=== PATIENT | male | born 1965 | race Caucasian/White ===

== ENCOUNTER 2017-03-21 09:40 | Emergency (ER) | payer MEDICARE, OTHER ==
[2017-03-21 09:46] VITALS: RESP 18
--- NOTE | 2017-03-21 10:18 | ED ---
General Adult HPI - General Chief complaint: Skin/Abscess/Foreign Body Stated complaint: FB IN THROAT Time Seen by Provider: 03/21/17 09:57 Source: patient, RN notes reviewed Mode of arrival: ambulatory Limitations: no limitations - History of Present Illness Initial comments: Patient is a 51-year-old male who presents emergency room today with chief complaint of possible esophageal foreign body. Patient does admit that to 3 days ago was eating [employer] states one didn't feel like he went down right. He does admit that he's had some scratchy type feeling to base of his throat since. He states it seems better when he lays down but is worse when he sits up or swallows. Patient denies any other complaints or symptoms. Patient heart rate elevated at triage admits that he does have a history of tachycardia. Patient denies any other complaints or symptoms. Patient denies any recent fever, chills, shortness of breath, back pain, abdominal pain, nausea or vomiting, numbness or tingling, dysuria or hematuria, constipation or diarrhea, headaches or visual changes, or any other complaints. - Related Data Home Medications Medication Instructions Recorded Confirmed Mirtazapine [Remeron] 30 mg PO HS 03/02/16 03/21/17 Folic Acid [Folic Acid] 1 mg PO DAILY 03/21/17 03/21/17 Hydrochlorothiazide [Hydrodiuril] 25 mg PO DAILY 03/21/17 03/21/17 Lisinopril [Prinivil] 10 mg PO DAILY 03/21/17 03/21/17 QUEtiapine FUMARATE [SEROquel XR] 150 mg PO HS 03/21/17 03/21/17 Ranitidine HCl 150 mg PO BID 03/21/17 03/21/17 Vivitrol 380mg Inj 380 mg IM Q28D 03/21/17 03/21/17 amLODIPine [Norvasc] 10 mg PO DAILY 03/21/17 03/21/17 Allergies Allergy/AdvReac Type Severity Reaction Status Date / Time No Known Allergies Allergy Verified 03/21/17 10:13 Review of Systems ROS Statement: Those systems with pertinent positive or pertinent negative responses have been documented in the HPI. ROS Other: All systems not noted in ROS Statement are negative. Past Medical History Past Medical History: Hypertension History of Any Multi-Drug Resistant Organisms: None Reported Past Surgical History: No Surgical Hx Reported Past Psychological History: Depression Smoking Status: Current every day smoker Past Alcohol Use History: Abuse, Daily, Heavy Past Drug Use History: None Reported General Exam - General Exam Comments Initial Comments: General: The patient is awake and alert, in no distress, and does not appear acutely ill. Eye: Pupils are equal, round and reactive to light, extra-ocular movements are intact. No nystagmus. There is normal conjunctiva bilaterally. No signs of icterus. Ears, nose, mouth and throat: There are moist mucous membranes and no oral lesions. Neck: The neck is supple, there is no tenderness or JVD. Cardiovascular: There is a regular rate and rhythm. No murmur, rub or gallop is appreciated. Respiratory: Lungs are clear to auscultation, respirations are non-labored, breath sounds are equal. No wheezes, stridor, rales, or rhonchi. Gastrointestinal: Soft, non-distended, non-tender abdomen without masses or organomegaly noted. There is no rebound or guarding present. No CVA tenderness. Bowel sounds are unremarkable. Musculoskeletal: Normal ROM, no tenderness. Strength 5/5. Sensation intact. Pulses equal bilaterally 2+. Neurological: A&O x 3. CN II-XII intact, There are no obvious motor or sensory deficits. Coordination appears grossly intact. Speech is normal. Skin: Skin is warm and dry and no rashes or lesions are noted. Psychiatric: Cooperative, appropriate mood & affect, normal judgment. Limitations: no limitations Course Vital Signs 03/21/17 09:42 Temperature 97.1 F L Pulse Rate 139 H Respiratory 18 Rate Blood Pressure 118/77 O2 Sat by Pulse 97 Oximetry EKG Findings - EKG Comments: EKG Findings:: EKG performed at 1014: Shows sinus tachycardia at 119 bpm. TX interval is 154. QRS 86. QT/QTc is 316/444. No acute ST changes. Medical Decision Making - Medical Decision Making Case discussed in detail with attending physician Dr. Chacko. Patient's labs been reviewed. Cardiac enzymes negative. Negative d-dimer. Patient does admit that the symptoms started after eating a patient's 3 days ago. At this time patient will be discharged and advised to follow-up with GI for further evaluation. Advised return to emergency room if any symptoms increase or worsen or for any other concerns. - Lab Data Result diagrams: 03/21/17 10:56 03/21/17 10:56 Lab Results 03/21/17 03/21/17 03/21/17 Range/Units 10:56 10:56 10:56 WBC 10.1 (3.8-10.6) k/uL RBC 6.05 H (4.30-5.90) m/uL Hgb 17.9 H (13.0-17.5) gm/dL Hct 50.4 (39.0-53.0) % MCV 83.3 (80.0-100.0) fL MCH 29.5 (25.0-35.0) pg MCHC 35.5 (31.0-37.0) g/dL RDW 13.5 (11.5-15.5) % Plt Count 238 (150-450) k/uL Neutrophils % 76 % Lymphocytes % 17 % Monocytes % 4 % Eosinophils % 1 % Basophils % 1 % Neutrophils # 7.7 (1.3-7.7) k/uL Lymphocytes # 1.7 (1.0-4.8) k/uL Monocytes # 0.4 (0-1.0) k/uL Eosinophils # 0.1 (0-0.7) k/uL Basophils # 0.1 (0-0.2) k/uL PT (9.0-12.0) sec INR (<1.1) APTT (22.0-30.0) sec D-Dimer (<0.60) mg/L FEU Sodium 134 L (137-145) mmol/L Potassium 4.5 (3.5-5.1) mmol/L Chloride 103 (98-107) mmol/L Carbon Dioxide 20 L (22-30) mmol/L Anion Gap 11 mmol/L BUN 15 (9-20) mg/dL Creatinine 1.25 (0.66-1.25) mg/dL Est GFR (MDRD) Af Amer >60 (>60 ml/min/1.73 sqM) Est GFR (MDRD) Non-Af >60 (>60 ml/min/1.73 sqM) Glucose 126 H (74-99) mg/dL Calcium 9.9 (8.4-10.2) mg/dL Total Bilirubin 0.8 (0.2-1.3) mg/dL AST 28 (17-59) U/L ALT 31 (21-72) U/L Alkaline Phosphatase 82 (38-126) U/L Total Creatine Kinase 65 (55-170) U/L CK-MB (CK-2) 0.4 (0.0-2.4) ng/mL CK-MB (CK-2) Rel Index 0.6 Troponin I <0.012 (0.000-0.034) ng/mL Total Protein 7.2 (6.3-8.2) g/dL Albumin 4.8 (3.5-5.0) g/dL 03/21/17 Range/Units 10:56 WBC (3.8-10.6) k/uL RBC (4.30-5.90) m/uL Hgb (13.0-17.5) gm/dL Hct (39.0-53.0) % MCV (80.0-100.0) fL MCH (25.0-35.0) pg MCHC (31.0-37.0) g/dL RDW (11.5-15.5) % Plt Count (150-450) k/uL Neutrophils % % Lymphocytes % % Monocytes % % Eosinophils % % Basophils % % Neutrophils # (1.3-7.7) k/uL Lymphocytes # (1.0-4.8) k/uL Monocytes # (0-1.0) k/uL Eosinophils # (0-0.7) k/uL Basophils # (0-0.2) k/uL PT 11.7 (9.0-12.0) sec INR 1.2 (<1.1) APTT 24.0 (22.0-30.0) sec D-Dimer 0.27 (<0.60) mg/L FEU Sodium (137-145) mmol/L Potassium (3.5-5.1) mmol/L Chloride (98-107) mmol/L Carbon Dioxide (22-30) mmol/L Anion Gap mmol/L BUN (9-20) mg/dL Creatinine (0.66-1.25) mg/dL Est GFR (MDRD) Af Amer (>60 ml/min/1.73 sqM) Est GFR (MDRD) Non-Af (>60 ml/min/1.73 sqM) Glucose (74-99) mg/dL Calcium (8.4-10.2) mg/dL Total Bilirubin (0.2-1.3) mg/dL AST (17-59) U/L ALT (21-72) U/L Alkaline Phosphatase (38-126) U/L Total Creatine Kinase (55-170) U/L CK-MB (CK-2) (0.0-2.4) ng/mL CK-MB (CK-2) Rel Index Troponin I (0.000-0.034) ng/mL Total Protein (6.3-8.2) g/dL Albumin (3.5-5.0) g/dL Disposition Clinical Impression: Esophageal foreign body Disposition: HOME SELF-CARE Condition: Good Instructions: Esophageal Foreign Body (ED) Additional Instructions: Please follow-up with GI doctor over the next 1-2 days. Please return to emergency room if the symptoms increase or worsen or for any other concerns. Referrals: None,Stated [REFERRING] - 1-2 days Janet Lugo MD [STAFF PHYSICIAN] - 1-2 days Time of Disposition: 12:04
--- NOTE | 2017-03-21 10:33 | XR ---
EXAMINATION TYPE: XR chest 2V DATE OF EXAM: 03/21/2017 HISTORY: pain. REFERENCE: NONE. FINDINGS: Lungs are overinflated but clear. Pleural space are clear. The heart is not enlarged. IMPRESSION: COPD.
[2017-03-21] MEDS ORDERED: SODIUM CHLORIDE 0.9% 1,000 ML IV STA (10:39)
[2017-03-21 11:13] LABS: Basophils # (A) 0.1 k/uL (0-0.2); Basophils % (A) 1 %; CH 30.2; CHCM 36.5; Eosinophils # (A) 0.1 k/uL (0-0.7); Eosinophils % (A) 1 %; HCT 50.4 % (39.0-53.0); HDW 2.78; HGB 17.9 gm/dL (13.0-17.5); Luc # (Auto) 0.14; Luc % (Auto) 1; Lymphocytes # (A) 1.7 k/uL (1.0-4.8); Lymphocytes % (A) 17 %; MCH 29.5 pg (25.0-35.0); MCHC 35.5 g/dL (31.0-37.0); MCV 83.3 fL (80.0-100.0); Mean Platelet Volume 7.4; Monocytes # (A) 0.4 k/uL (0-1.0); Monocytes % (A) 4 %; Neutrophils # (A) 7.7 k/uL (1.3-7.7); Neutrophils % (A) 76 %; RBC 6.05 m/uL (4.30-5.90); RDW 13.5 % (11.5-15.5); WBC 10.1 k/uL (3.8-10.6); WBC (Perox) 9.67
[2017-03-21 11:21] LABS: Anion Gap 11 mmol/L; Calcium 9.9 mg/dL (8.4-10.2); Carbon Dioxide 20 mmol/L (22-30); Chloride 103 mmol/L (98-107); Glucose 126 mg/dL (74-99); Non-African American GFR(MDRD) >60 (>60 ml/min/1.73 sqM); Sodium 134 mmol/L (137-145); Total Bilirubin 0.8 mg/dL (0.2-1.3); Total Protein 7.2 g/dL (6.3-8.2)
[2017-03-21 11:25] LABS: AST 28 U/L (17-59); Blood Urea Nitrogen 15 mg/dL (9-20); Potassium 4.5 mmol/L (3.5-5.1)
[2017-03-21 11:26] LABS: ALT 31 U/L (21-72); Alkaline Phosphatase 82 U/L (38-126)
[2017-03-21 11:34] LABS: INR 1.2 (<1.1); Prothrombin Time 11.7 sec (9.0-12.0)
[2017-03-21 11:35] LABS: Creatine Kinase 65 U/L (55-170)
[2017-03-21 11:48] LABS: Creatine Kinase MB 0.4 ng/mL (0.0-2.4); Troponin I <0.012 ng/mL (0.000-0.034)
[2017-03-21 12:14] VITALS: BP 119/78; PULSE 94; TEMP 97.7
== END 2017-03-21 12:14 | disposition home or self-care (01) ==
LOC: EC 09:40
DX: T18.128A Food in esophagus causing other injury, initial encounter (principal); R00.0 Tachycardia, unspecified; I10 Essential (primary) hypertension; F32.9 Major depressive disorder, single episode, unspecified; F17.200 Nicotine dependence, unspecified, uncomplicated; Z79.899 Other long term (current) drug therapy
CPT/HCPCS: 36415; 71020; 80053; 82550; 82553; 84484; 85025; 85379; 85610; 85730; 93005; 96360; 99284

== ENCOUNTER → 2022-01-03 | Outpatient (CLI) | payer MEDICARE, OTHER ==
--- NOTE | 2022-01-03 12:24 | FL ---
EXAMINATION TYPE: FL barium swallow w video DATE OF EXAM: 01/03/2022 COMPARISON: NONE HISTORY: Abnormal sensation in throat. The patient was evaluated in the lateral projection during real-time fluoroscopy, during ingestion of barium mixed with solids and liquids. No aspiration or laryngeal penetration. See report from [facility]. No images obtained. 1 minute 3 seconds fluoroscopy time supplied.
== END | disposition home or self-care (01) ==
LOC: RADFLMAIN 10:56
PROVIDERS: ATTEND Internal Medicine
DX: R13.10 Dysphagia, unspecified (principal)
CPT/HCPCS: 74230

== ENCOUNTER → 2022-03-07 | Outpatient (CLI) | payer MEDICARE, OTHER ==
--- NOTE | 2022-03-07 12:26 | XR ---
EXAM TYPE: LUMBAR SPINE X RAY SERIES COMPARISON: NONE HISTORY: Pain TECHNIQUE: 4 views are submitted. FINDINGS: Alignment is anatomic. The pedicles are intact. The transverse processes are intact. Hypertrophic a nd degenerative changes of the spine. Vascular calcifications noted. Facet arthropathy lower lumbar s pine. IMPRESSION: 1. Multilevel degenerative disc disease.
== END | disposition home or self-care (01) ==
LOC: RADXRMAIN 11:39
PROVIDERS: ATTEND Internal Medicine
DX: M51.36 Other intervertebral disc degeneration, lumbar region (principal)
CPT/HCPCS: 72110

== ENCOUNTER 2023-01-12 01:23 | Inpatient (IN) | payer MEDICARE, MEDICAID ==
[2023-01-12] MEDS ORDERED: SODIUM CHLORIDE 0.9% 1,000 ML IV STA (01:57)
[2023-01-12] MEDS ORDERED: ONDANSETRON 4 MG/2 ML VIAL IVP STA (01:57)
[2023-01-12] MEDS ORDERED: PANTOPRAZOLE 40 MG/10 ML VIAL IVP STA (01:57)
[2023-01-12] MEDS ORDERED: KETOROLAC 15 MG/ML 1 ML VIAL IVP STA (01:57)
[2023-01-12 02:42] LABS: Basophils # (A) 0.1 k/uL (0-0.2); Basophils % (A) 2 %; Eosinophils # (A) 0.1 k/uL (0-0.7); Eosinophils % (A) 1 %; HCT 53.9 % (39.0-53.0); HGB 18.8 gm/dL (13.0-17.5); Lymphocytes # (A) 1.6 k/uL (1.0-4.8); Lymphocytes % (A) 21 %; MCH 31.4 pg (25.0-35.0); MCHC 34.9 g/dL (31.0-37.0); Mean Platelet Volume 8.4; Monocytes # (A) 0.4 k/uL (0-1.0); Monocytes % (A) 5 %; Neutrophils # (A) 5.3 k/uL (1.3-7.7); Neutrophils % (A) 69 %; Platelet Count 185 k/uL (150-450); RBC 5.99 m/uL (4.30-5.90); RDW 14.1 % (11.5-15.5); WBC 7.6 k/uL (3.8-10.6)
[2023-01-12 02:51] LABS: Appearance,Urine Clear (Clear); Bilirubin,Urine Negative (Negative); Blood,Urine Negative (Negative); Color,Urine Yellow; Glucose,Urine (UA) Negative (Negative); Ketones,Urine Trace (Negative); Leukocyte Esterase,Urine Negative (Negative); Nitrite,Urine Negative (Negative); PH, Urine 5.5 (5.0-8.0); Protein,Urine Negative (Negative); Specific Gravity,Urine 1.017 (1.001-1.035); Urobilinogen,Urine <2.0 mg/dL (<2.0)
[2023-01-12 02:54] LABS: ALT 25 U/L (4-49); AST 30 U/L (17-59); African American GFR (CKD) >90 (>60 ml/min/1.73 sqM); Albumin 4.3 g/dL (3.5-5.0); Alkaline Phosphatase 59 U/L (38-126); Amylase 58 U/L (30-110); Anion Gap 11 mmol/L; Blood Urea Nitrogen 5 mg/dL (9-20); Calcium 9.2 mg/dL (8.4-10.2); Carbon Dioxide 20 mmol/L (22-30); Chloride 104 mmol/L (98-107); Glucose 108 mg/dL (74-99); Lipase 57 U/L (23-300); Non-African American GFR(CKD) >90 (>60 ml/min/1.73 sqM); Sodium 135 mmol/L (137-145); Total Bilirubin 0.9 mg/dL (0.2-1.3); Total Protein 6.4 g/dL (6.3-8.2)
[2023-01-12 02:56] LABS: Potassium 4.1 mmol/L (3.5-5.1)
[2023-01-12 02:58] LABS: INR 1.2 (<1.2); Partial Thromboplastin Time 23.2 sec (22.0-30.0); Prothrombin Time 11.9 sec (9.0-12.0)
--- NOTE | 2023-01-12 03:29 | CT ---
EXAMINATION TYPE: CT abdomen pelvis w con DATE OF EXAM: 01/12/2023 COMPARISON: 02/01/2015 HISTORY: RLQ pain CT DLP: 804.9 mGycm Automated exposure control for dose reduction was used. CONTRAST: Performed with IV Contrast, patient injected with 100ml mL of Isovue 300. Images obtained from the diaphragm to the floor the pelvis with IV contrast. The lung bases are clear. No pleural effusion. Heart size is normal. No pericardial effusion. Liver s pleen and stomach pancreas gallbladder appear intact. The bile ducts are not dilated. There is no adrenal mass. Kidneys have normal size and contour. No hydronephrosis. Ureters are not di lated. No retroperitoneal adenopathy. The bladder distends smoothly. Appendix is posterior and appear s normal. No inguinal hernia. No free fluid in the pelvis. No pelvic mass. There is no mesenteric edema. No ascites or free air. No sign of a bowel obstruction. The lumbar vert ebrae have normal spacing and alignment. Posterior elements are intact. No compression fracture. The bony pelvis is intact. The hip joints are intact. There is 3 cm cyst in the medial right kidney. IMPRESSION: Normal appendix. No acute abnormality in the abdomen and pelvis.
[2023-01-12] MEDS ORDERED: MORPHINE SULFATE 2 MG/ML SYRINGE IVP ONE (04:15)
[2023-01-12] MEDS ORDERED: ACETAMINOPHEN TAB 325 MG TAB PO PRN (05:44)
[2023-01-12] MEDS ORDERED: MAGNESIUM HYDROXIDE 2,400 MG/10 ML CUP PO PRN (05:44)
[2023-01-12] MEDS ORDERED: MAG HYDROX/AL HYDROX/SIMETH 30 ML CUP PO PRN (05:44)
[2023-01-12] MEDS ORDERED: LORazepam 2 MG/ML INJ IM PRN (05:47)
[2023-01-12] MEDS ORDERED: HALOPERIDOL LACTATE 5 MG/ML 1 ML VIAL IM PRN (05:48)
[2023-01-12] MEDS ORDERED: haloperidoL 5 MG TAB PO PRN (05:48)
[2023-01-12 06:50] LABS: Amphetamine Screen,Urine Not Detected (NotDetected); Barbiturate Screen,Urine Not Detected (NotDetected); Benzodiazepines Screen,Urine Not Detected (NotDetected); Cocaine Screen,Urine Not Detected (NotDetected); Methadone Screen, Urine Not Detected (NotDetected); Opiate Screen,Urine Not Detected (NotDetected); Oxycodone Screen, Urine Not Detected (NotDetected); Phencyclidine Screen,Urine Not Detected (NotDetected); Tricyclic Antidepressant,Urine Not Detected (NotDetected); Urn Cannabinoid Scrn Detected (NotDetected)
--- NOTE | 2023-01-12 08:43 | ED ---
General Adult HPI - General Chief complaint: Abdominal Pain Stated complaint: Abd Pain Time Seen by Provider: 01/12/23 01:27 Source: patient, EMS, RN notes reviewed, old records reviewed Mode of arrival: EMS - History of Present Illness Initial comments: Patient is a 57-year-old male with past medical history remarkable for bipolar disease, history of alcohol abuse who presents emergency Department 11 days sober complaining of right lower quadrant abdominal pain. Describes is an achy sensation. Denies any nausea, vomiting, diarrhea. States he did have one loose bowel movement because he did produce that he was constipated. Denies any urinary complaints. Denies any testicular pain or penile discharge. Denies any fevers, chills, sick contacts. Has no other acute complaints at this time. Patient subsequently acknowledges he is no longer on any medications for his bipolar disease. At this time on initial evaluation, he denies any suicidal or homicidal ideations, attempts, plans. Denies any visual or auditory hallucinations. - Related Data Home Medications Medication Instructions Recorded Confirmed Mirtazapine [Remeron] 30 mg PO HS 03/02/16 03/21/17 Folic Acid 1 mg PO DAILY 03/21/17 03/21/17 QUEtiapine FUMARATE [SEROquel XR] 150 mg PO HS 03/21/17 03/21/17 Vivitrol 380mg Inj 380 mg IM Q28D 03/21/17 03/21/17 amLODIPine [Norvasc] 10 mg PO DAILY 03/21/17 03/21/17 hydroCHLOROthiazide [Hydrodiuril] 25 mg PO DAILY 03/21/17 03/21/17 lisinopriL [Prinivil] 10 mg PO DAILY 03/21/17 03/21/17 raNITIdine HCL [Ranitidine HCl] 150 mg PO BID 03/21/17 03/21/17 Allergies Allergy/AdvReac Type Severity Reaction Status Date / Time No Known Allergies Allergy Verified 01/12/23 05:49 Review of Systems ROS Statement: Those systems with pertinent positive or pertinent negative responses have been documented in the HPI. Review of Systems: CONST: Denies fever EYES: Denies blurry vision ENT: Denies nasal congestion C/V: Denies Chest pain RESP: Denies shortness of breath GI: endorsess abdominal pain : Denies dysuria SKIN: Denies rash. MSK: Denies joint pain. NEURO: Denies headache ROS Other: All systems not noted in ROS Statement are negative. Past Medical History Past Medical History: Hypertension History of Any Multi-Drug Resistant Organisms: None Reported Past Surgical History: No Surgical Hx Reported Smoking Status: Current every day smoker General Exam - General Exam Comments Initial Comments: General: Appears in no acute distress. No evidence of alcohol withdrawal. HEAD: Normal with no signs of head trauma. EYES: PERRLA, EOMI, conjunctiva normal, no discharge. ENT: Hearing grossly intact, normal oropharynx. RESPIRATORY: Clear breath sounds bilaterally. No wheezes, rales, or rhonchi. C/V: Regular rate and rhythm. S1 and S2 auscultated, no edema, peripheral pulses 2+ and intact throughout ABD: Abdomen soft, nondistended. Mild tenderness palpation in the right lower quadrant. No guarding. No rebound tenderness. No peritoneal signs. EXT: Normal range of motion, no obvious deformity SKIN: No rashes or lesions observed on exposed skin. NEURO: Alert and oriented x 4. Cranial nerves II-XII intact. No focal sensory or strength deficits. Course Vital Signs 01/12/23 01/12/23 01:31 05:24 Temperature 98 F Pulse Rate 123 H 75 Respiratory 17 Rate Blood Pressure 159/107 135/75 O2 Sat by Pulse 98 97 Oximetry Medical Decision Making - Medical Decision Making Was pt. sent in by a medical professional or institution (LUZ MARIA Balderrama, MAINTENANCE DISPATCHER, urgent care, hospital, or longterm...) When possible be specific @ -No Did you speak to anyone other than the patient for history (EMS, parent, family, police, friend...)? What history was obtained from this source @ -No Did you review nursing and triage notes (agree or disagree)? Why? @ -I reviewed and agree with nursing and triage notes Were old charts reviewed (outside hosp., previous admission, EMS record, old EKG, old radiological studies, urgent care reports/EKG's, longterm records)? Report findings @ -No old charts were reviewed Differential Diagnosis (chest pain, altered mental status, abdominal pain women, abdominal pain men, vaginal bleeding, weakness, fever, dyspnea, syncope, headache, dizziness, GI bleed, back pain, seizure, CVA, palpatations, mental health, musculoskeletal)? @ -Differential Abdominal Pain Men: Appendicitis, cholecystitis, diverticulosis, ischemic bowel, pancreatitis, hepatitis, UTI, gastroenteritis, AAA, incarcerated hernia, bowel obstruction, constipation, inflammatory bowel, hepatitis, peptic ulcer disease, splenic infarction, perforated viscus, testicular torsion, this is not meant to be an all-inclusive list EKG interpreted by me (3pts min.). @ -As above X-rays interpreted by me (1pt min.). @ -None done CT interpreted by me (1pt min.). @ -ETM pelvis reveals no obvious acute intra-abdominal processes states when the patient's symptoms. U/S interpreted by me (1pt. min.). @ -None done What testing was considered but not performed or refused? (CT, X-rays, U/S, l abs)? Why? @ -None What meds were considered but not given or refused? Why? @ -None Did you discuss the management of the patient with other professionals (professionals i.e. , PA, MAINTENANCE DISPATCHER, lab, RT, psych nurse, social services counselor, assistant professor of anthropology, teacher, aoc aadc operations staff officer, lining caser)? Give summary @ -EPS was notified of the patient. Was smoking cessation discussed for >3mins.? @ -No Was critical care preformed (if so, how long)? @ -No Were there social determinants of health that impacted care today? How? (Homelessness, low income, unemployed, alcoholism, drug addiction, transportation, low edu. Level, literacy, decrease access to med. care, nursing home, rehab)? @ -No Was there de-escalation of care discussed even if they declined (Discuss DNR or withdrawal of care, Hospice)? DNR status @ -No What co-morbidities impacted this encounter? (DM, HTN, Smoking, COPD, CAD, Cancer, CVA, ARF, Chemo, Hep., AIDS, mental health diagnosis, sleep apnea, morbid obesity)? @ -Bipolar disease Was patient admitted / discharged? Hospital course, mention meds given and route, prescriptions, significant lab abnormalities, going to OR and other pertinent info. @ -Based on the patient's presentation and physical exam, I'm concerned for an acute intra-abdominal process for his current symptoms are we will obtain abdominal labs as well as CT and pelvis. He'll be symptomatically treated with IV analgesia, fluids, Protonix, Zofran. He was in agreement with this plan. Vital signs are within acceptable limits. Patient's laboratory studies are within acceptable limits. CT and pelvis is within normal limits. On reevaluation, patient is feeling improved in terms of his abdominal pain. I updated him on his results. However at this time he does endorse worsening depression, becomes emotional and begins to start crying. States he intermittently does have suicidal ideations and thoughts at home. States he currently has not recently acted on any of these. I did recommend that we admit the EPS evaluate him. He was in agreement this plan. He was placed in green scrubs. BAT is 0. UDS is pending. EPS evaluate the patient after I notified them that the patient is medically cleared for evaluation. They determined that he does meet inpatient criteria. He will be admitted to inpatient psychiatry for further management. Undiagnosed new problem with uncertain prognosis? @ -No Drug Therapy requiring intensive monitoring for toxicity (Heparin, Nitro, Insulin, Cardizem)? @ -No Were any procedures done? @ -No Diagnosis/symptom? @ -Abdominal pain of unknown etiology Acute, or Chronic, or Acute on Chronic? @ -Acute Uncomplicated (without systemic symptoms) or Complicated (systemic symptoms)? @ -Uncomplicated Side effects of treatment? @ -No Exacerbation, Progression, or Severe Exacerbation? @ -No Poses a threat to life or bodily function? How? (Chest pain, USA, IA, pneumonia, PE, COPD, DKA, ARF, appy, cholecystitis, CVA, Diverticulitis, Homicidal, Suicidal, threat to staff... and all critical care pts) @ -No Diagnosis/symptom? @ -depresion, SI Acute, or Chronic, or Acute on Chronic? @ -acute Uncomplicated (without systemic symptoms) or Complicated (systemic symptoms)? @ -Uncomplicated Side effects of treatment? @ -none Exacerbation, Progression, or Severe Exacerbation] @ -no Poses a threat to life or bodily function? @ -Yes, can result in harm to self due to his suicidal ideations and depression. - Lab Data Result diagrams: 01/12/23 02:08 01/12/23 02:08 Lab Results 01/12/23 01/12/23 01/12/23 Range/Units 02:08 02:08 02:08 WBC 7.6 (3.8-10.6) k/uL RBC 5.99 H (4.30-5.90) m/uL Hgb 18.8 H (13.0-17.5) gm/dL Hct 53.9 H (39.0-53.0) % MCV 90.0 (80.0-100.0) fL MCH 31.4 (25.0-35.0) pg MCHC 34.9 (31.0-37.0) g/dL RDW 14.1 (11.5-15.5) % Plt Count 185 (150-450) k/uL MPV 8.4 Neutrophils % 69 % Lymphocytes % 21 % Monocytes % 5 % Eosinophils % 1 % Basophils % 2 % Neutrophils # 5.3 (1.3-7.7) k/uL Lymphocytes # 1.6 (1.0-4.8) k/uL Monocytes # 0.4 (0-1.0) k/uL Eosinophils # 0.1 (0-0.7) k/uL Basophils # 0.1 (0-0.2) k/uL PT 11.9 (9.0-12.0) sec INR 1.2 H (<1.2) APTT 23.2 (22.0-30.0) sec Sodium 135 L (137-145) mmol/L Potassium 4.1 (3.5-5.1) mmol/L Chloride 104 (98-107) mmol/L Carbon Dioxide 20 L (22-30) mmol/L Anion Gap 11 mmol/L BUN 5 L (9-20) mg/dL Creatinine 0.60 L (0.66-1.25) mg/dL Est GFR (CKD-EPI)AfAm >90 (>60 ml/min/1.73 sqM) Est GFR (CKD-EPI)NonAf >90 (>60 ml/min/1.73 sqM) Glucose 108 H (74-99) mg/dL Plasma Lactic Acid Abdirizak (0.7-2.0) mmol/L Calcium 9.2 (8.4-10.2) mg/dL Total Bilirubin 0.9 (0.2-1.3) mg/dL AST 30 (17-59) U/L ALT 25 (4-49) U/L Alkaline Phosphatase 59 (38-126) U/L Total Protein 6.4 (6.3-8.2) g/dL Albumin 4.3 (3.5-5.0) g/dL Amylase 58 (30-110) U/L Lipase 57 (23-300) U/L Urine Color Urine Appearance (Clear) Urine pH (5.0-8.0) Ur Specific [place] (1.001-1.035) Urine Protein (Negative) Urine Glucose (UA) (Negative) Urine Ketones (Negative) Urine Blood (Negative) Urine Nitrite (Negative) Urine Bilirubin (Negative) Urine Urobilinogen (<2.0) mg/dL Ur Leukocyte Esterase (Negative) Urine Opiates Screen (NotDetected) Ur Oxycodone Screen (NotDetected) Urine Methadone Screen (NotDetected) Ur Propoxyphene Screen (NotDetected) Ur Barbiturates Screen (NotDetected) U Tricyclic Antidepress (NotDetected) Ur Phencyclidine Scrn (NotDetected) Ur Amphetamines Screen (NotDetected) U Methamphetamines Scrn (NotDetected) U Benzodiazepines Scrn (NotDetected) Urine Cocaine Screen (NotDetected) U Marijuana (THC) Screen (NotDetected) Influenza Type A (PCR) (Not Detectd) Influenza Type B (PCR) (Not Detectd) RSV (PCR) (Not Detectd) SARS-CoV-2 (PCR) (Not Detectd) 01/12/23 01/12/23 01/12/23 Range/Units 02:08 02:09 02:20 WBC (3.8-10.6) k/uL RBC (4.30-5.90) m/uL Hgb (13.0-17.5) gm/dL Hct (39.0-53.0) % MCV (80.0-100.0) fL MCH (25.0-35.0) pg MCHC (31.0-37.0) g/dL RDW (11.5-15.5) % Plt Count (150-450) k/uL MPV Neutrophils % % Lymphocytes % % Monocytes % % Eosinophils % % Basophils % % Neutrophils # (1.3-7.7) k/uL Lymphocytes # (1.0-4.8) k/uL Monocytes # (0-1.0) k/uL Eosinophils # (0-0.7) k/uL Basophils # (0-0.2) k/uL PT (9.0-12.0) sec INR (<1.2) APTT (22.0-30.0) sec Sodium (137-145) mmol/L Potassium (3.5-5.1) mmol/L Chloride (98-107) mmol/L Carbon Dioxide (22-30) mmol/L Anion Gap mmol/L BUN (9-20) mg/dL Creatinine (0.66-1.25) mg/dL Est GFR (CKD-EPI)AfAm (>60 ml/min/1.73 sqM) Est GFR (CKD-EPI)NonAf (>60 ml/min/1.73 sqM) Glucose (74-99) mg/dL Plasma Lactic Acid Abdirizak 0.8 (0.7-2.0) mmol/L Calcium (8.4-10.2) mg/dL Total Bilirubin (0.2-1.3) mg/dL AST (17-59) U/L ALT (4-49) U/L Alkaline Phosphatase (38-126) U/L Total Protein (6.3-8.2) g/dL Albumin (3.5-5.0) g/dL Amylase (30-110) U/L Lipase (23-300) U/L Urine Color Yellow Urine Appearance Clear (Clear) Urine pH 5.5 (5.0-8.0) Ur Specific [place] 1.017 (1.001-1.035) Urine Protein Negative (Negative) Urine Glucose (UA) Negative (Negative) Urine Ketones Trace H (Negative) Urine Blood Negative (Negative) Urine Nitrite Negative (Negative) Urine Bilirubin Negative (Negative) Urine Urobilinogen <2.0 (<2.0) mg/dL Ur Leukocyte Esterase Negative (Negative) Urine Opiates Screen Not Detected (NotDetected) Ur Oxycodone Screen Not Detected (NotDetected) Urine Methadone Screen Not Detected (NotDetected) Ur Propoxyphene Screen Not Detected (NotDetected) Ur Barbiturates Screen Not Detected (NotDetected) U Tricyclic Antidepress Not Detected (NotDetected) Ur Phencyclidine Scrn Not Detected (NotDetected) Ur Amphetamines Screen Not Detected (NotDetected) U Methamphetamines Scrn Not Detected (NotDetected) U Benzodiazepines Scrn Not Detected (NotDetected) Urine Cocaine Screen Not Detected (NotDetected) U Marijuana (THC) Screen Detected H (NotDetected) Influenza Type A (PCR) (Not Detectd) Influenza Type B (PCR) (Not Detectd) RSV (PCR) (Not Detectd) SARS-CoV-2 (PCR) (Not Detectd) 01/12/23 Range/Units 02:20 WBC (3.8-10.6) k/uL RBC (4.30-5.90) m/uL Hgb (13.0-17.5) gm/dL Hct (39.0-53.0) % MCV (80.0-100.0) fL MCH (25.0-35.0) pg MCHC (31.0-37.0) g/dL RDW (11.5-15.5) % Plt Count (150-450) k/uL MPV Neutrophils % % Lymphocytes % % Monocytes % % Eosinophils % % Basophils % % Neutrophils # (1.3-7.7) k/uL Lymphocytes # (1.0-4.8) k/uL Monocytes # (0-1.0) k/uL Eosinophils # (0-0.7) k/uL Basophils # (0-0.2) k/uL PT (9.0-12.0) sec INR (<1.2) APTT (22.0-30.0) sec Sodium (137-145) mmol/L Potassium (3.5-5.1) mmol/L Chloride (98-107) mmol/L Carbon Dioxide (22-30) mmol/L Anion Gap mmol/L BUN (9-20) mg/dL Creatinine (0.66-1.25) mg/dL Est GFR (CKD-EPI)AfAm (>60 ml/min/1.73 sqM) Est GFR (CKD-EPI)NonAf (>60 ml/min/1.73 sqM) Glucose (74-99) mg/dL Plasma Lactic Acid Abdirizak (0.7-2.0) mmol/L Calcium (8.4-10.2) mg/dL Total Bilirubin (0.2-1.3) mg/dL AST (17-59) U/L ALT (4-49) U/L Alkaline Phosphatase (38-126) U/L Total Protein (6.3-8.2) g/dL Albumin (3.5-5.0) g/dL Amylase (30-110) U/L Lipase (23-300) U/L Urine Color Urine Appearance (Clear) Urine pH (5.0-8.0) Ur Specific [place] (1.001-1.035) Urine Protein (Negative) Urine Glucose (UA) (Negative) Urine Ketones (Negative) Urine Blood (Negative) Urine Nitrite (Negative) Urine Bilirubin (Negative) Urine Urobilinogen (<2.0) mg/dL Ur Leukocyte Esterase (Negative) Urine Opiates Screen (NotDetected) Ur Oxycodone Screen (NotDetected) Urine Methadone Screen (NotDetected) Ur Propoxyphene Screen (NotDetected) Ur Barbiturates Screen (NotDetected) U Tricyclic Antidepress (NotDetected) Ur Phencyclidine Scrn (NotDetected) Ur Amphetamines Screen (NotDetected) U Methamphetamines Scrn (NotDetected) U Benzodiazepines Scrn (NotDetected) Urine Cocaine Screen (NotDetected) U Marijuana (THC) Screen (NotDetected) Influenza Type A (PCR) Not Detected (Not Detectd) Influenza Type B (PCR) Not Detected (Not Detectd) RSV (PCR) Not Detected (Not Detectd) SARS-CoV-2 (PCR) Not Detected (Not Detectd) - EKG Data -: EKG Interpreted by Me EKG Comments: 12-lead Electrocardiogram Interpretation Note EKG was reviewed and interpreted by myself. 12-lead ECG performed at 0255 is interpreted by me as revealing normal sinus rhythm at a rate of 92 beats per minute. [place] is normal. MS interval is 195 ms, QRS duration is 92 ms, QTc is 399 ms. There were no ST or T wave abnormalities to suggest myocardial ischemia or injury. R wave progression across the precordium was satisfactory. By my interpretation this EKG is non-diagnostic for acute ischemia. Disposition Clinical Impression: Depression, Suicidal ideation, Abdominal pain of unknown cause Disposition: ADMITTED IP TO THIS HOSP Condition: Stable Time of Disposition: 04:30
[2023-01-12] MEDS: NICOTINE 7MG/24HR PATCH TRANSDERM SCH (08:44)
--- NOTE | 2023-01-12 10:08 | P.HP ---
Psychiatric H&P - . H&P Date: 01/12/23 History & Physical: Allergies Allergy/AdvReac Type Severity Reaction Status Date / Time No Known Allergies Allergy Verified 01/12/23 05:49 Vital Signs Temp 97.9 F 01/12/23 06:13 Pulse 75 01/12/23 06:13 Resp 15 01/12/23 06:13 BP 149/77 01/12/23 06:13 Pulse Ox 96 01/12/23 06:13 FiO2 Intake & Output 01/11/23 01/12/23 01/12/23 18:59 06:59 18:59 Weight 74.871 kg Laboratory Last Values WBC 7.6 k/uL (3.8-10.6) 01/12/23 02:08 RBC 5.99 m/uL (4.30-5.90) H 01/12/23 02:08 Hgb 18.8 gm/dL (13.0-17.5) H 01/12/23 02:08 Hct 53.9 % (39.0-53.0) H 01/12/23 02:08 MCV 90.0 fL (80.0-100.0) 01/12/23 02:08 MCH 31.4 pg (25.0-35.0) 01/12/23 02:08 MCHC 34.9 g/dL (31.0-37.0) 01/12/23 02:08 RDW 14.1 % (11.5-15.5) 01/12/23 02:08 Plt Count 185 k/uL (150-450) 01/12/23 02:08 MPV 8.4 01/12/23 02:08 Neutrophils % 69 % 01/12/23 02:08 Lymphocytes % 21 % 01/12/23 02:08 Monocytes % 5 % 01/12/23 02:08 Eosinophils % 1 % 01/12/23 02:08 Basophils % 2 % 01/12/23 02:08 Neutrophils # 5.3 k/uL (1.3-7.7) 01/12/23 02:08 Lymphocytes # 1.6 k/uL (1.0-4.8) 01/12/23 02:08 Monocytes # 0.4 k/uL (0-1.0) 01/12/23 02:08 Eosinophils # 0.1 k/uL (0-0.7) 01/12/23 02:08 Basophils # 0.1 k/uL (0-0.2) 01/12/23 02:08 PT 11.9 sec (9.0-12.0) 01/12/23 02:08 INR 1.2 (<1.2) H 01/12/23 02:08 APTT 23.2 sec (22.0-30.0) 01/12/23 02:08 Sodium 135 mmol/L (137-145) L 01/12/23 02:08 Potassium 4.1 mmol/L (3.5-5.1) 01/12/23 02:08 Chloride 104 mmol/L (98-107) 01/12/23 02:08 Carbon Dioxide 20 mmol/L (22-30) L 01/12/23 02:08 Anion Gap 11 mmol/L 01/12/23 02:08 BUN 5 mg/dL (9-20) L 01/12/23 02:08 Creatinine 0.60 mg/dL (0.66-1.25) L 01/12/23 02:08 Est GFR (CKD-EPI)AfAm >90 (>60 ml/min/1.73 sqM) 01/12/23 02:08 Est GFR (CKD-EPI)NonAf >90 (>60 ml/min/1.73 sqM) 01/12/23 02:08 Glucose 108 mg/dL (74-99) H 01/12/23 02:08 Plasma Lactic Acid Abdirizak 0.8 mmol/L (0.7-2.0) 01/12/23 02:08 Calcium 9.2 mg/dL (8.4-10.2) 01/12/23 02:08 Total Bilirubin 0.9 mg/dL (0.2-1.3) 01/12/23 02:08 AST 30 U/L (17-59) 01/12/23 02:08 ALT 25 U/L (4-49) 01/12/23 02:08 Alkaline Phosphatase 59 U/L (38-126) 01/12/23 02:08 Total Protein 6.4 g/dL (6.3-8.2) 01/12/23 02:08 Albumin 4.3 g/dL (3.5-5.0) 01/12/23 02:08 Amylase 58 U/L (30-110) 01/12/23 02:08 Lipase 57 U/L (23-300) 01/12/23 02:08 Urine Color Yellow 01/12/23 02:20 Urine Appearance Clear (Clear) 01/12/23 02:20 Urine pH 5.5 (5.0-8.0) 01/12/23 02:20 Ur Specific [place] 1.017 (1.001-1.035) 01/12/23 02:20 Urine Protein Negative (Negative) 01/12/23 02:20 Urine Glucose (UA) Negative (Negative) 01/12/23 02:20 Urine Ketones Trace (Negative) H 01/12/23 02:20 Urine Blood Negative (Negative) 01/12/23 02:20 Urine Nitrite Negative (Negative) 01/12/23 02:20 Urine Bilirubin Negative (Negative) 01/12/23 02:20 Urine Urobilinogen <2.0 mg/dL (<2.0) 01/12/23 02:20 Ur Leukocyte Esterase Negative (Negative) 01/12/23 02:20 Urine Opiates Screen Not Detected (NotDetected) 01/12/23 02:09 Ur Oxycodone Screen Not Detected (NotDetected) 01/12/23 02:09 Urine Methadone Screen Not Detected (NotDetected) 01/12/23 02:09 Ur Propoxyphene Screen Not Detected (NotDetected) 01/12/23 02:09 Ur Barbiturates Screen Not Detected (NotDetected) 01/12/23 02:09 U Tricyclic Antidepress Not Detected (NotDetected) 01/12/23 02:09 Ur Phencyclidine Scrn Not Detected (NotDetected) 01/12/23 02:09 Ur Amphetamines Screen Not Detected (NotDetected) 01/12/23 02:09 U Methamphetamines Scrn Not Detected (NotDetected) 01/12/23 02:09 U Benzodiazepines Scrn Not Detected (NotDetected) 01/12/23 02:09 Urine Cocaine Screen Not Detected (NotDetected) 01/12/23 02:09 U Marijuana (THC) Screen Detected (NotDetected) H 01/12/23 02:09 Influenza Type A (PCR) Not Detected (Not Detectd) 01/12/23 02:20 Influenza Type B (PCR) Not Detected (Not Detectd) 01/12/23 02:20 RSV (PCR) Not Detected (Not Detectd) 01/12/23 02:20 SARS-CoV-2 (PCR) Not Detected (Not Detectd) 01/12/23 02:20 01/12/23 10:00 Psychiatric evaluation: This is a 57-year-old male with long history of mental illness and patient claims that he's been diagnosed with bipolar disorder and alcohol use disorder who presents with some abdominal pain. After medical clearance patient however reports that he was feeling extended depressed helpless and hopeless is also having suicidal ideations and a plan to overdose Patient says that he was very concerned about his safety He says that he is being on a binge for several months and has been detoxing himself for the last 11 days He says that his has extreme problems with insomnia and anxiety and restlessness and feeling agitated He patient says that he also experiencing marked mood swings He currently denies any suicidal plan but states that he needs help Past history personal and social history patient stated that he is currently lives alone and is on disability He says that he does not have any close family members in this area This patient states that he is on disability due to having dyslexia and learning disorders He states that he also had a relapse last year He also admits using cannabis on and off for years Patient says that he was doing better and had stopped taking his medications whe n he started drinking heavily Mental status examination: MENTAL STATUS EVALUATION: Appearance: Appears stated age, groomed, average body built, and no specific features. Patient was in hospital gown Gait/ posture: Ambulates appropriately and adequately, no abnormal movements, with relaxed posture. Attitude and Behavior: cooperative, makes good eye contact during course of interview. Motor Activity: Decreased psychomotor activity. Speech: spontaneous, Slow rate, rhythm, and articulation. Low volume. Mood: fine Affect: Flat. Thought content/process: denies suicidal thoughts, denies homicidal thoughts, Denies intentions, or plans. Thought processes are goal-directed sequential and logical Perception: Denies auditory hallucinations. Alertness: No impairment. Concentration: Adequate Orientation: Alert and fully oriented Insight/judgment: Good Diagnostic impression: Adjustment disorder with mixed emotional features Mood disorder unspecified Anxiety disorder alcohol-related Alcohol use disorder chronic Somatoform disorder unspecified Rule out bipolar disorder Plan: Patient is admitted under voluntary status to [facility]HU for stabilization of psychiatric symptoms and safety. Patient signed adult voluntary form. -Medications : Patient is already detox himself for the last 11 days and we will initially started on gabapentin 300 mg 3 times a day to help with the detox and anxiety We will also add trazodone 150 mg at bedtime for insomnia -Ativan and Haldol PRN for agitation/aggression -Patient was counselled on substance abuse -Patient was informed of the risks, benefits and side effects of the medication and patient verbally consented to taking the medications. -Internal Medicine consult to perform medical evaluation and physical. -SW on board for discharge planning. Encourage patient to participate in groups to work on coping skills. Tentative the patient has true bipolar disorder versus mood changes related to his chronic alcohol use but will monitor for any exacerbation of symptoms Patient is currently not suicidal or homicidal and does not appear to be a danger to himself or others and is motivated for treatment [facility]
[2023-01-12 11:45] LABS: ALT 26 U/L (4-49); AST 28 U/L (17-59); Albumin 4.4 g/dL (3.5-5.0); Alkaline Phosphatase 59 U/L (38-126); Bilirubin, Delta 0.4 mg/dL (0.0-0.2); Bilirubin,Unconjugated 0.3 mg/dL (0.0-1.1); Total Bilirubin 0.7 mg/dL (0.2-1.3); Total Protein 6.5 g/dL (6.3-8.2)
[2023-01-12] MEDS: LORazepam 1 MG TAB PO PRN (13:37)
[2023-01-12] MEDS: GABAPENTIN 300 MG CAP PO SCH ×2 (15:29→21:09)
[2023-01-12 19:03] LABS: Chol/HDL Ratio 2.63 Ratio; VLDL Calculation 15.36 mg/dL (5.00-40.00)
[2023-01-12] MEDS ORDERED: traZODone HCL 50 MG TAB PO SCH (21:00)
[2023-01-12] MEDS: DOXEPIN 25 MG CAP PO SCH (21:09)
--- NOTE | 2023-01-13 00:29 | P.PN ---
Progress Note - Text Progress Note Date: 01/13/23 Attempted to see the patient in the mental health unit on 01/12 at 1999. The patient refused to be seen or be evaluated.
[2023-01-13] MEDS: NICOTINE 7MG/24HR PATCH TRANSDERM SCH (06:43)
--- NOTE | 2023-01-13 08:16 | P.PN ---
Progress Note - Text Progress Note Date: 01/13/23 Subjective/objective data: Patient reports that he is feeling better He says that the medications to seem to keep him calmer Patient however states that he could not take the trazodone but did not seem to agree well with him and that he forgot to tell me about it when interviewing Patient states that the doxepin however did seem to work very well on that he slept all night Denies any side effects from the current medications He says that his depression seems to fluctuate He says that overall he is feeling that he is on the right track He denies any suicidal or homicidal ideations at this time Mental status examination: MENTAL STATUS EVALUATION: Appearance: Appears stated age, groomed, average body built, and no specific features. Patient was in hospital gown Gait/ posture: Ambulates appropriately and adequately, no abnormal movements, with relaxed posture. Attitude and Behavior: cooperative, makes good eye contact during course of interview. Motor Activity: Decreased psychomotor activity. Speech: spontaneous, Slow rate, rhythm, and articulation. Low volume. Mood: fine Affect: Flat. Thought content/process: denies suicidal thoughts, denies homicidal thoughts, Denies intentions, or plans. Thought processes are goal-directed sequential and logical Perception: Denies auditory hallucinations. Alertness: No impairment. Concentration: Adequate Orientation: Alert and fully oriented Insight/judgment: Good Diagnostic impression: Adjustment disorder with mixed emotional features Mood disorder unspecified Anxiety disorder alcohol-related Alcohol use disorder chronic Somatoform disorder unspecified Rule out bipolar disorder Plan: Patient is admitted under voluntary status to [facility]HU for stabilization of psychiatric symptoms and safety. Patient signed adult voluntary form. -Medications : Patient is already detox himself for the last 11 days started on gabapentin 300 mg 3 times a day to help with the detox and anxiety The trazodone has been switched to doxepin 25 mg at bedtime with good results -Ativan and Haldol PRN for agitation/aggression -Patient was counselled on substance abuse -Patient was informed of the risks, benefits and side effects of the medication and patient verbally consented to taking the medications. -Internal Medicine consult to perform medical evaluation and physical. -SW on board for discharge planning. Encourage patient to participate in groups to work on coping skills. Tentative the patient has true bipolar disorder versus mood changes related to his chronic alcohol use but will monitor for any exacerbation of symptoms Patient is currently not suicidal or homicidal and does not appear to be a danger to himself or others and [facility]
[2023-01-13] MEDS: GABAPENTIN 300 MG CAP PO SCH ×3 (08:56→20:43)
[2023-01-13] MEDS: LORazepam 1 MG TAB PO PRN (09:26)
[2023-01-13] MEDS: DOXEPIN 25 MG CAP PO SCH (20:43)
[2023-01-14] MEDS: NICOTINE 7MG/24HR PATCH TRANSDERM SCH (08:22)
[2023-01-14] MEDS: GABAPENTIN 300 MG CAP PO SCH (08:22)
[2023-01-14] MEDS: LORazepam 1 MG TAB PO PRN (08:22)
[2023-01-14] MEDS ORDERED: DOCUSATE 100 MG CAP PO STA (10:24)
[2023-01-14] MEDS ORDERED: NALTREXONE HCL 50 MG TAB PO STA (10:26)
--- NOTE | 2023-01-14 11:54 | P.PN ---
Progress Note - Text Progress Note Date: 01/14/23 Interval History: Patient was seen attending group and was directable and agreeable to speak with typewriter operator automatic in the office. And currently reports that he is feeling significantly better in regards to his anxiety and sleep. He states that he has been tolerating his medication of gabapentin and doxepin well. He does express concerns regarding constipation and states that it has been 4 days since he last passed old. He is agreeable to starting Colace today. He remains future and goal oriented and understands that he needs to maintain sobriety. He denies any issues regarding his sleep or his appetite. He reports no medical issues or concerns. The patient reports that he is trending in the right direction. He does express that he has concerns regarding his housing situation and has been having trouble getting his landlord to handle the situation with his neighbor and his neighbor's cats. Mental Status Exam: General Appearance: Patient appears to be stated age is alert, directable, and cooperative. Behavior: Patient is calmly seated without any agitated behavior. Speech: Patient's speech is fluent and nonpressured. Mood/Affect: Mood is improving mildly, affect is congruent and constricted. Suicidality/Homicidality: Patient denies having any suicidal or homicidal ideation intent or plan. Perceptions: Patient denies any visual hallucinations and denies any auditory hallucinations Though content/process: There is no evidence of any delusional thought content and thought process is linear and goal-directed. Memory and concentration: AOX3, grossly intact for the purposes of this session Judgment and insight: Improving mildly Vital Signs Temp 97.8 F 01/14/23 06:31 Pulse 79 01/14/23 06:31 Resp 16 01/14/23 06:31 BP 120/64 01/14/23 06:31 Pulse Ox 98 01/14/23 06:31 FiO2 Intake & Output 01/13/23 01/14/23 01/14/23 18:59 06:59 18:59 Weight 75.7 kg Assessment Unspecified mood disorder Adjustment disorder, with mixed anxiety and depression Alcohol use disorder Rule out bipolar disorder Plan: -Patient continues to meet criteria for inpatient psychiatric admission for symptom stabilization and safety. Patient has signed adult voluntary form and medication consent and was placed in patient's chart. -Medications: Increase gabapentin to 400 mg by mouth 3 times a day profitable use for anxiety and for alcohol use disorder Continue doxepin 25 mg by mouth at bedtime for anxiety and insomnia Startnaltrexone 50 mg by mouth daily for alcohol cessation -When necessary Ativan and Haldol for agitation/aggression. -NRT - nicotine patch -SW on board for discharge planning. Encouraged the patient to participate in milieu.
[2023-01-14] MEDS: GABAPENTIN 400 MG CAP PO SCH ×2 (15:14→20:34)
[2023-01-14] MEDS ORDERED: NICOTINE GUM (POLACRILEX) 2 MG GUM BUCCAL PRN (17:05)
[2023-01-14] MEDS: DOXEPIN 25 MG CAP PO SCH (20:34)
[2023-01-14] MEDS: DOCUSATE 100 MG CAP PO SCH (20:34)
--- NOTE | 2023-01-15 01:41 | P.CONS ---
History of Present Illness - Reason for Consult Consult date: 01/15/23 - History of Present Illness The patient is a 57-year-old male with a PMH of alcohol abuse, tobacco abuse, bipolar disorder who had presented to the emergency room with complaints of abdominal pain. The patient had undergone a workup in the emergency room with a CT abdomen and pelvis which was unremarkable. The patient subsequently endorsed depression with suicidal ideation and was admitted to the mental health unit where he was seen and evaluated. The patient reports a significant history of alcohol use drinking as many as 10 beers a day for the past several years. The patient is happy that he is in the mental health unit and that he is forced to be sober. He also reports smoking 12-13 cigarettes every day. He denied illicit substance use. Denies any history of alcohol withdrawal. He reports f eeling at his baseline at the time of interview. Denied any active complaints. Review of systems: Pertinent positives and negatives as discussed in HPI, a complete review of systems was performed and all other systems are negative. Physical examination: General: non toxic, no distress, appears at stated age, normal weight Derm: no unusual rashes/lesions, no unusual ecchymoses, warm, dry Head: atraumatic, normocephalic, symmetric Eyes: EOMI, no lid lag, anicteric sclera ENT: Nose and ears atraumatic, no thrush, no pharyngeal erythema Neck: trachea midline, supple Mouth: no lip lesion, mucus membranes moist Cardiovascular: S1S2 reg, no murmur, no edema Lungs: CTA bilateral, no rhonchi, no rales , no accessory muscle use Abdominal: soft, nontender to palpation, no guarding Ext: no gross muscle atrophy, no contractures, Neuro: No gross focal neuro deficits noted Psych: Alert, oriented, appropriate affect Assessment: Alcohol abuse Marijuana abuse Tobacco abuse Polycythemia Imaging: CT abdomen and pelvis in the emergency room was unremarkable. EKG revealed sinus rhythm at [address]-T wave changes noted as reviewed by me. Data Review: Laboratory evaluation was remarkable for hemoglobin 18.8, sodium 135, CO2 20, BUN 5, creatinine 0.6, glucose 108, hemoglobin A1c 5.6, lactic acid 0.8, HDL 48, TSH 1.8, with urine toxicology positive for marijuana. Plan: Advised patient strongly and importance of alcohol and marijuana use cessation Polycythemia borderline similar to baseline, suspect may be due to dehydration in setting of alcohol use Defer management of depression and suicidal ideation a primary psychiatry service Thank you for allowing us to participate in the care of this patient. We will follow peripherally. Do not hesitate to contact us with questions. Someone can be reached from the [facility] hospitalist group at all hours of the day at [phone]. Past Medical History Past Medical History: Hypertension History of Any Multi-Drug Resistant Organisms: None Reported Past Surgical History: No Surgical Hx Reported Smoking Status: Current every day smoker Medications and Allergies Home Medications Medication Instructions Recorded Confirmed Type Mirtazapine [Remeron] 30 mg PO HS 03/02/16 03/21/17 History Folic Acid 1 mg PO DAILY 03/21/17 03/21/17 History QUEtiapine FUMARATE [SEROquel XR] 150 mg PO HS 03/21/17 03/21/17 History Vivitrol 380mg Inj 380 mg IM Q28D 03/21/17 03/21/17 History amLODIPine [Norvasc] 10 mg PO DAILY 03/21/17 03/21/17 History hydroCHLOROthiazide [Hydrodiuril] 25 mg PO DAILY 03/21/17 03/21/17 History lisinopriL [Prinivil] 10 mg PO DAILY 03/21/17 03/21/17 History raNITIdine HCL [Ranitidine HCl] 150 mg PO BID 03/21/17 03/21/17 History Allergies Allergy/AdvReac Type Severity Reaction Status Date / Time trazodone AdvReac Rapid Verified 01/12/23 15:51 Heart Rate Physical Exam Vitals: Vital Signs Temp Pulse Resp BP Pulse Ox 01/14/23 06:31 97.8 F 79 16 120/64 98 Results CBC & Chem 7: 01/12/23 02:08 01/12/23 02:08
[2023-01-15] MEDS: NALTREXONE HCL 50 MG TAB PO SCH (08:26)
[2023-01-15] MEDS: GABAPENTIN 400 MG CAP PO SCH ×3 (08:26→20:28)
[2023-01-15] MEDS: DOCUSATE 100 MG CAP PO SCH ×2 (08:26→20:28)
[2023-01-15] MEDS: NICOTINE 7MG/24HR PATCH TRANSDERM SCH (08:26)
[2023-01-15] MEDS: LORazepam 1 MG TAB PO PRN ×2 (08:44→16:11)
--- NOTE | 2023-01-15 11:50 | P.PN ---
Progress Note - Text Progress Note Date: 01/15/23 Interval History: Patient was seen attending group and was directable and agreeable to speak with marketing underwriter in the office. Currently, the patient is not reporting any suicidal or homicidal ideation, intention, and/or plan. He does express concerns about discharge. He states that if he is to be discharged, he is worried that he would be extremely angry and may have an outburst towards his neighbor above him due to his cats urinating all over the floors and causing the smell along the whole entire apartment. He is not reporting any auditory or visual hallucinations. He denies any paranoia or other delusions. Patient does report elevated anxiety and worry. However, the patient reports that he is sleeping well and eating well. He has been attending groups. He has been adherent with his medication and is not endorsing any significant side effects. He reports no medical issues or concerns. Mental Status Exam: General Appearance: Patient appears to be stated age is alert, directable, and cooperative. Behavior: Patient is calmly seated without any agitated behavior. Speech: Patient's speech is fluent and nonpressured. Mood/Affect: Mood is "pretty nervous," affect is congruent and nervous. Suicidality/Homicidality: Patient denies having any suicidal or homicidal ideation intent or plan. Perceptions: Patient denies any visual hallucinations and denies any auditory hallucinations Though content/process: There is no evidence of any delusional thought content and thought process is linear and goal-directed. Memory and concentration: AOX3, grossly intact for the purposes of this session Judgment and insight: Improving mildly Vital Signs Temp 96.2 F L 01/15/23 05:07 Pulse 95 01/15/23 05:07 Resp 16 01/15/23 05:07 BP 139/91 01/15/23 05:07 Pulse Ox 96 01/15/23 05:07 FiO2 Assessment Unspecified mood disorder Adjustment disorder, with mixed anxiety and depression Alcohol use disorder Rule out bipolar disorder Plan: -Patient continues to meet criteria for inpatient psychiatric admission for symptom stabilization and safety. Patient has signed adult voluntary form and medication consent and was placed in patient's chart. -Medications: Continue gabapentin to 400 mg by mouth 3 times a day profitable use for anxiety and for alcohol use disorder Increased doxepin to 50 mg by mouth at bedtime for anxiety and insomnia Continue naltrexone 50 mg by mouth daily for alcohol cessation -When necessary Ativan and Haldol for agitation/aggression. -NRT - nicotine patch -SW on board for discharge planning. Encouraged the patient to participate in milieu.
[2023-01-15] MEDS: DOXEPIN 25 MG CAP PO SCH (20:27)
[2023-01-16] MEDS: GABAPENTIN 400 MG CAP PO SCH ×3 (08:46→20:31)
[2023-01-16] MEDS: NICOTINE 7MG/24HR PATCH TRANSDERM SCH (08:46)
[2023-01-16] MEDS: DOCUSATE 100 MG CAP PO SCH ×2 (08:46→20:31)
[2023-01-16] MEDS: NALTREXONE HCL 50 MG TAB PO SCH (08:46)
[2023-01-16] MEDS: LORazepam 1 MG TAB PO PRN ×2 (08:48→16:17)
--- NOTE | 2023-01-16 13:22 | P.PN ---
Progress Note - Text Progress Note Date: 01/16/23 Interval History: Patient was seen attending group and was directable and agreeable to speak with technical writer and editor in the office. Currently, the patient is not reporting any suicidal or homicidal ideation, intention, and/or plan. He is not reporting any auditory or visual hallucinations. He is denying any paranoia or other delusions. The patient has been adherent with his medications and is not endorsing any significant side effects. He does report elevated anxiety and rates his anxiety at 8 out of 10 in severity however remains future and goal oriented. He does express concerns for his discharge as he is worried about the status of his apartment and his neighbor. Mental Status Exam: General Appearance: Patient appears to be stated age is alert, directable, and cooperative. Behavior: Patient is calmly seated without any agitated behavior. Speech: Patient's speech is fluent and nonpressured. Mood/Affect: Mood is "pretty nervous," affect is congruent and nervous. Suicidality/Homicidality: Patient denies having any suicidal or homicidal ideation intent or plan. Perceptions: Patient denies any visual hallucinations and denies any auditory hallucinations Though content/process: There is no evidence of any delusional thought content and thought process is linear and goal-directed. Memory and concentration: AOX3, grossly intact for the purposes of this session Judgment and insight: Improving mildly Vital Signs Temp 97.4 F L 01/16/23 06:36 Pulse 72 01/16/23 06:36 Resp 14 01/16/23 06:36 BP 137/76 01/16/23 06:36 Pulse Ox 96 01/15/23 05:07 FiO2 Laboratory Results WBC 7.6 k/uL (3.8-10.6) 01/12/23 02:08 RBC 5.99 m/uL (4.30-5.90) H 01/12/23 02:08 Hgb 18.8 gm/dL (13.0-17.5) H 01/12/23 02:08 Hct 53.9 % (39.0-53.0) H 01/12/23 02:08 MCV 90.0 fL (80.0-100.0) 01/12/23 02:08 MCH 31.4 pg (25.0-35.0) 01/12/23 02:08 MCHC 34.9 g/dL (31.0-37.0) 01/12/23 02:08 RDW 14.1 % (11.5-15.5) 01/12/23 02:08 Plt Count 185 k/uL (150-450) 01/12/23 02:08 MPV 8.4 01/12/23 02:08 Neutrophils % 69 % 01/12/23 02:08 Lymphocytes % 21 % 01/12/23 02:08 Monocytes % 5 % 01/12/23 02:08 Eosinophils % 1 % 01/12/23 02:08 Basophils % 2 % 01/12/23 02:08 Neutrophils # 5.3 k/uL (1.3-7.7) 01/12/23 02:08 Lymphocytes # 1.6 k/uL (1.0-4.8) 01/12/23 02:08 Monocytes # 0.4 k/uL (0-1.0) 01/12/23 02:08 Eosinophils # 0.1 k/uL (0-0.7) 01/12/23 02:08 Basophils # 0.1 k/uL (0-0.2) 01/12/23 02:08 PT 11.9 sec (9.0-12.0) 01/12/23 02:08 INR 1.2 (<1.2) H 01/12/23 02:08 APTT 23.2 sec (22.0-30.0) 01/12/23 02:08 Sodium 135 mmol/L (137-145) L 01/12/23 02:08 Potassium 4.1 mmol/L (3.5-5.1) 01/12/23 02:08 Chloride 104 mmol/L (98-107) 01/12/23 02:08 Carbon Dioxide 20 mmol/L (22-30) L 01/12/23 02:08 Anion Gap 11 mmol/L 01/12/23 02:08 BUN 5 mg/dL (9-20) L 01/12/23 02:08 Creatinine 0.60 mg/dL (0.66-1.25) L 01/12/23 02:08 Est GFR (CKD-EPI)AfAm >90 (>60 ml/min/1.73 sqM) 01/12/23 02:08 Est GFR (CKD-EPI)NonAf >90 (>60 ml/min/1.73 sqM) 01/12/23 02:08 Glucose 108 mg/dL (74-99) H 01/12/23 02:[address] Glu mg/dL 114 01/12/23 10:43 Hemoglobin A1c 5.6 % (0.0-6.0) 01/12/23 10:43 Plasma Lactic Acid Abdirizak 0.8 mmol/L (0.7-2.0) 01/12/23 02:08 Calcium 9.2 mg/dL (8.4-10.2) 01/12/23 02:08 Total Bilirubin 0.7 mg/dL (0.2-1.3) 01/12/23 10:43 Conjugated Bilirubin 0.0 mg/dL (0.0-0.3) 01/12/23 10:43 Unconjugated Bilirubin 0.3 mg/dL (0.0-1.1) 01/12/23 10:43 Delta Bilirubin 0.4 mg/dL (0.0-0.2) H 01/12/23 10:43 AST 28 U/L (17-59) 01/12/23 10:43 ALT 26 U/L (4-49) 01/12/23 10:43 Alkaline Phosphatase 59 U/L (38-126) 01/12/23 10:43 Total Protein 6.5 g/dL (6.3-8.2) 01/12/23 10:43 Albumin 4.4 g/dL (3.5-5.0) 01/12/23 10:43 Triglycerides 76.80 mg/dL (0.00-149.00) 01/12/23 10:43 Cholesterol 128.00 mg/dL (0.00-200.00) 01/12/23 10:43 LDL Cholesterol, Calc 64.0 mg/dL (0.0-131.0) 01/12/23 10:43 VLDL Cholesterol, Calc 15.36 mg/dL (5.00-40.00) 01/12/23 10:43 HDL Cholesterol 48.60 mg/dL (40.00-60.00) 01/12/23 10:43 Cholesterol/HDL Ratio 2.63 Ratio 01/12/23 10:43 Amylase 58 U/L (30-110) 01/12/23 02:08 Lipase 57 U/L (23-300) 01/12/23 02:08 TSH 1.870 mIU/L (0.465-4.680) 01/12/23 10:43 Urine Color Yellow 01/12/23 02:20 Urine Appearance Clear (Clear) 01/12/23 02:20 Urine pH 5.5 (5.0-8.0) 01/12/23 02:20 Ur Specific [place] 1.017 (1.001-1.035) 01/12/23 02:20 Urine Protein Negative (Negative) 01/12/23 02:20 Urine Glucose (UA) Negative (Negative) 01/12/23 02:20 Urine Ketones Trace (Negative) H 01/12/23 02:20 Urine Blood Negative (Negative) 01/12/23 02:20 Urine Nitrite Negative (Negative) 01/12/23 02:20 Urine Bilirubin Negative (Negative) 01/12/23 02:20 Urine Urobilinogen <2.0 mg/dL (<2.0) 01/12/23 02:20 Ur Leukocyte Esterase Negative (Negative) 01/12/23 02:20 Urine Opiates Screen Not Detected (NotDetected) 01/12/23 02:09 Ur Oxycodone Screen Not Detected (NotDetected) 01/12/23 02:09 Urine Methadone Screen Not Detected (NotDetected) 01/12/23 02:09 Ur Propoxyphene Screen Not Detected (NotDetected) 01/12/23 02:09 Ur Barbiturates Screen Not Detected (NotDetected) 01/12/23 02:09 U Tricyclic Antidepress Not Detected (NotDetected) 01/12/23 02:09 Ur Phencyclidine Scrn Not Detected (NotDetected) 01/12/23 02:09 Ur Amphetamines Screen Not Detected (NotDetected) 01/12/23 02:09 U Methamphetamines Scrn Not Detected (NotDetected) 01/12/23 02:09 U Benzodiazepines Scrn Not Detected (NotDetected) 01/12/23 02:09 Urine Cocaine Screen Not Detected (NotDetected) 01/12/23 02:09 U Marijuana (THC) Screen Detected (NotDetected) H 01/12/23 02:09 Influenza Type A (PCR) Not Detected (Not Detectd) 01/12/23 02:20 Influenza Type B (PCR) Not Detected (Not Detectd) 01/12/23 02:20 RSV (PCR) Not Detected (Not Detectd) 01/12/23 02:20 SARS-CoV-2 (PCR) Not Detected (Not Detectd) 01/12/23 02:20 Assessment Unspecified mood disorder Adjustment disorder, with mixed anxiety and depression Alcohol use disorder Rule out bipolar disorder Plan: -Patient continues to meet criteria for inpatient psychiatric admission for symptom stabilization and safety. Patient has signed adult voluntary form and medication consent and was placed in patient's chart. -Medications: Continue gabapentin 400 mg by mouth 3 times a day profitable use for anxiety and for alcohol use disorder Continue doxepin 50 mg by mouth at bedtime for anxiety and insomnia Continue naltrexone 50 mg by mouth daily for alcohol cessation -When necessary Ativan and Haldol for agitation/aggression. -NRT - nicotine patch -SW on board for discharge planning. Encouraged the patient to participate in milieu.
[2023-01-16] MEDS: DOXEPIN 25 MG CAP PO SCH (20:31)
[2023-01-17 07:03] VITALS: BP 125/84; PULSE 109; RESP 18; TEMP 97.6
[2023-01-17] MEDS: NICOTINE 7MG/24HR PATCH TRANSDERM SCH (08:23)
[2023-01-17] MEDS: LORazepam 1 MG TAB PO PRN (08:24)
[2023-01-17] MEDS: NALTREXONE HCL 50 MG TAB PO SCH (08:24)
[2023-01-17] MEDS: DOCUSATE 100 MG CAP PO SCH (08:24)
[2023-01-17] MEDS: GABAPENTIN 400 MG CAP PO SCH (08:24)
--- NOTE | 2023-01-17 11:29 | P.DS ---
Providers Date of admission: 01/12/23 05:41 Expected date of discharge: 01/17/23 Attending physician: Reid Reese MD Consults: 01/12/23 05:44 Consult Physician Routine Consulting Provider: Jaylin Engle Consult Reason/Comments: For H & P for Medical Follow Up Do you want consulting provider notified?: Yes Primary care physician: [facility] - Discharge Diagnosis(es) (1) Adjustment disorder with mixed anxiety and depressed mood Current Visit: Yes Status: Acute Priority: High (2) Bipolar disorder, unspecified Current Visit: Yes Status: Acute Priority: High (3) Alcohol use disorder Current Visit: Yes Status: Chronic Priority: Medium (4) Tobacco use disorder Current Visit: Yes Status: Chronic Priority: Medium Hospital Course: Admission HPI: Initial psychiatric evaluation was completed by Dr. Christensen on 01/12/2023 who wrote: " This is a 57-year-old male with long history of mental illness and patient cl aims that he's been diagnosed with bipolar disorder and alcohol use disorder who presents with some abdominal pain. After medical clearance patient however reports that he was feeling extended depressed helpless and hopeless is also having suicidal ideations and a plan to overdose Patient says that he was very concerned about his safety He says that he is being on a binge for several months and has been detoxing himself for the last 11 days He says that his has extreme problems with insomnia and anxiety and restlessness and feeling agitated He patient says that he also experiencing marked mood swings He currently denies any suicidal plan but states that he needs help Past history personal and social history patient stated that he is currently lives alone and is on disability He says that he does not have any close family members in this area This patient states that he is on 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 Patient was however directable and agreeable to commence treatment. Patient got along well with other patients on the unit and followed unit protocol. Patient was compliant with the medications and denied any side effects throughout hospital course. Patient was started on gabapentin for off label use for anxiety and alcohol detoxification and trazodone for insomnia. Trazodone was switched to doxepin in order to further address anxiety symptoms and for more efficacy dealing with insomnia. Patient spoke of his stressors and engaged in therapy both group and individual. Patient was also seen by medical team for history and physical exam. Over the course the hospitalization, the patient became more active in group and individual activities and his doxepin and gabapentin were further titrated. As the patient wanted to curb his alcohol desire, he was started on naltrexone. On this regimen, the patient despite significant improvement regards to started symptoms of depression, anxiety, and alcohol addiction. He became more future and goal oriented. On the day of discharge, the patient is not reporting any suicidal or homicidal ideation, intention, and/or plan. He denies any access to firearms or other weapons. He remains future and goal oriented expresses a desire to live for himself. Patient reported no auditory or visual hallucinations. He denied any paranoia or other delusions. Patient does have a significant history of substance abuse however was counseled on abstaining from all substances including alcohol, tobacco, marijuana, and all illicit drugs. The patient was offered however declined inpatient substance-abuse rehabilitation. He reports that he will be going to Alcoholics Anonymous and has a sponsor. He was counseled at length the importance of medication adherence and appropriate outpatient follow-up. He was encouraged to follow-up with his primary care physician as well. Prior to discharge, a meeting will be scheduled by the secondary social studies teacher to answer any questions and ensure safety. He reports no medical issues or concerns. He denies any chest pain, palpitations, light-headedness, or dizziness. Mental status exam: General Appearance: Patient appears to be stated age is alert, pleasant, and cooperative. Patient is in no acute distress and has fair hygiene and grooming Behavior: Patient is calmly seated without any agitated behavior. Speech: Patient's speech is fluent and nonpressured. Mood/Affect: Patient reports their mood is "much better", affect is congruent and euthymic. Suicidality/Homicidality: Patient denies having any suicidal or homicidal ideation intent or plan. Perceptions: Patient denies any auditory or visual hallucinations. Though content/process: There is no evidence of any delusional thought content and thought process is linear and goal-directed. Patient is future oriented Memory and concentration: AOX3, grossly intact for the purposes of this session. Can spell "WORLD" backwards correctly. Judgment and insight: Improved with guarded prognosis Impression: Adjustment disorder, with mixed anxiety and depression Alcohol use disorder Bipolar disorder, unspecified Tobacco use disorder Plan: -Continue with discharge today as patient has improved and stabilized psychiatrically and is not currently an imminent threat to himself and/or others. Patient will remain at chronically elevated risk due to his alcohol use disorder. -Continue medications: Habitrol patches for nicotine cessation Gabapentin 400 mg by mouth 3 times a day for off label use for anxiety and alcohol ReVia 50 mg by mouth daily for alcohol use disorder Doxepin 50 mg by mouth at bedtime for depression/anxiety -Patient was counseled on the need for medication compliance and appropriate follow-up at mental health and also primary care for medical issues. Patient verbalized understanding and agreed. -Social work to arrange for and conduct family meeting to ensure safety upon discharge and answer any questions/concerns. Social work also to arrange for patients follow up appointments with [facility] for psychiatric care along with follow up with primary care provider. -Patient counseled on abstaining from recreational drugs and marijuana and alcohol. Was informed/educated on the adverse effects on their physical and mental health. Patient verbally agreed and understood. Patient was offered substance abuse treatment however declined at this time -Patient was instructed to return to the hospital or seek immediate medical care if their psychiatric or medical symptoms do worsen or reoccur. -Psychoeducation and supportive therapy provided to patient. Risks and benefits of pharmacological treatment versus the risks and benefits of nontreatment weight and discussed. Informed consent discussion held. Common side effects of psychotropics discussed such as, but not limited to headache, GI disturbance, sexual dysfunction, movement disorders, sedation, and orthostatic hypotension. Life threatening and blackbox warnings of prescribed medications also discussed. Potential risks of operating a vehicle or heavy machinery discussed with latricia ent at length. Advised on importance of compliance and a reliable and responsible manner. Patient advised to review FDA consumer labeling of all medications prior to taking. Patient verbalized understanding of potential risks, and agrees with current treatment plan. Patient advised to medically contact physician/emergency personnel if any acute changes in condition occur. Vital Signs Temp 97.6 F 01/17/23 07:02 Pulse 109 H 01/17/23 07:02 Resp 18 01/17/23 07:02 BP 125/84 01/17/23 07:02 Pulse Ox 98 01/17/23 07:02 FiO2 Laboratory Results WBC 7.6 k/uL (3.8-10.6) 01/12/23 02:08 RBC 5.99 m/uL (4.30-5.90) H 01/12/23 02:08 Hgb 18.8 gm/dL (13.0-17.5) H 01/12/23 02:08 Hct 53.9 % (39.0-53.0) H 01/12/23 02:08 MCV 90.0 fL (80.0-100.0) 01/12/23 02:08 MCH 31.4 pg (25.0-35.0) 01/12/23 02:08 MCHC 34.9 g/dL (31.0-37.0) 01/12/23 02:08 RDW 14.1 % (11.5-15.5) 01/12/23 02:08 Plt Count 185 k/uL (150-450) 01/12/23 02:08 MPV 8.4 01/12/23 02:08 Neutrophils % 69 % 01/12/23 02:08 Lymphocytes % 21 % 01/12/23 02:08 Monocytes % 5 % 01/12/23 02:08 Eosinophils % 1 % 01/12/23 02:08 Basophils % 2 % 01/12/23 02:08 Neutrophils # 5.3 k/uL (1.3-7.7) 01/12/23 02:08 Lymphocytes # 1.6 k/uL (1.0-4.8) 01/12/23 02:08 Monocytes # 0.4 k/uL (0-1.0) 01/12/23 02:08 Eosinophils # 0.1 k/uL (0-0.7) 01/12/23 02:08 Basophils # 0.1 k/uL (0-0.2) 01/12/23 02:08 PT 11.9 sec (9.0-12.0) 01/12/23 02:08 INR 1.2 (<1.2) H 01/12/23 02:08 APTT 23.2 sec (22.0-30.0) 01/12/23 02:08 Sodium 135 mmol/L (137-145) L 01/12/23 02:08 Potassium 4.1 mmol/L (3.5-5.1) 01/12/23 02:08 Chloride 104 mmol/L (98-107) 01/12/23 02:08 Carbon Dioxide 20 mmol/L (22-30) L 01/12/23 02:08 Anion Gap 11 mmol/L 01/12/23 02:08 BUN 5 mg/dL (9-20) L 01/12/23 02:08 Creatinine 0.60 mg/dL (0.66-1.25) L 01/12/23 02:08 Est GFR (CKD-EPI)AfAm >90 (>60 ml/min/1.73 sqM) 01/12/23 02:08 Est GFR (CKD-EPI)NonAf >90 (>60 ml/min/1.73 sqM) 01/12/23 02:08 Glucose 108 mg/dL (74-99) H 01/12/23 02:[address] Glu mg/dL 114 01/12/23 10:43 Hemoglobin A1c 5.6 % (0.0-6.0) 01/12/23 10:43 Plasma Lactic Acid Abdirizak 0.8 mmol/L (0.7-2.0) 01/12/23 02:08 Calcium 9.2 mg/dL (8.4-10.2) 01/12/23 02:08 Total Bilirubin 0.7 mg/dL (0.2-1.3) 01/12/23 10:43 Conjugated Bilirubin 0.0 mg/dL (0.0-0.3) 01/12/23 10:43 Unconjugated Bilirubin 0.3 mg/dL (0.0-1.1) 01/12/23 10:43 Delta Bilirubin 0.4 mg/dL (0.0-0.2) H 01/12/23 10:43 AST 28 U/L (17-59) 01/12/23 10:43 ALT 26 U/L (4-49) 01/12/23 10:43 Alkaline Phosphatase 59 U/L (38-126) 01/12/23 10:43 Total Protein 6.5 g/dL (6.3-8.2) 01/12/23 10:43 Albumin 4.4 g/dL (3.5-5.0) 01/12/23 10:43 Triglycerides 76.80 mg/dL (0.00-149.00) 01/12/23 10:43 Cholesterol 128.00 mg/dL (0.00-200.00) 01/12/23 10:43 LDL Cholesterol, Calc 64.0 mg/dL (0.0-131.0) 01/12/23 10:43 VLDL Cholesterol, Calc 15.36 mg/dL (5.00-40.00) 01/12/23 10:43 HDL Cholesterol 48.60 mg/dL (40.00-60.00) 01/12/23 10:43 Cholesterol/HDL Ratio 2.63 Ratio 01/12/23 10:43 Amylase 58 U/L (30-110) 01/12/23 02:08 Lipase 57 U/L (23-300) 01/12/23 02:08 TSH 1.870 mIU/L (0.465-4.680) 01/12/23 10:43 Urine Color Yellow 01/12/23 02:20 Urine Appearance Clear (Clear) 01/12/23 02:20 Urine pH 5.5 (5.0-8.0) 01/12/23 02:20 Ur Specific Eld[place] 1.017 (1.001-1.035) 01/12/23 02:20 Urine Protein Negative (Negative) 01/12/23 02:20 Urine Glucose (UA) Negative (Negative) 01/12/23 02:20 Urine Ketones Trace (Negative) H 01/12/23 02:20 Urine Blood Negative (Negative) 01/12/23 02:20 Urine Nitrite Negative (Negative) 01/12/23 02:20 Urine Bilirubin Negative (Negative) 01/12/23 02:20 Urine Urobilinogen <2.0 mg/dL (<2.0) 01/12/23 02:20 Ur Leukocyte Esterase Negative (Negative) 01/12/23 02:20 Urine Opiates Screen Not Detected (NotDetected) 01/12/23 02:09 Ur Oxycodone Screen Not Detected (NotDetected) 01/12/23 02:09 Urine Methadone Screen Not Detected (NotDetected) 01/12/23 02:09 Ur Propoxyphene Screen Not Detected (NotDetected) 01/12/23 02:09 Ur Barbiturates Screen Not Detected (NotDetected) 01/12/23 02:09 U Tricyclic Antidepress Not Detected (NotDetected) 01/12/23 02:09 Ur Phencyclidine Scrn Not Detected (NotDetected) 01/12/23 02:09 Ur Amphetamines Screen Not Detected (NotDetected) 01/12/23 02:09 U Methamphetamines Scrn Not Detected (NotDetected) 01/12/23 02:09 U Benzodiazepines Scrn Not Detected (NotDetected) 01/12/23 02:09 Urine Cocaine Screen Not Detected (NotDetected) 01/12/23 02:09 U Marijuana (THC) Screen Detected (NotDetected) H 01/12/23 02:09 Influenza Type A (PCR) Not Detected (Not Detectd) 01/12/23 02:20 Influenza Type B (PCR) Not Detected (Not Detectd) 01/12/23 02:20 RSV (PCR) Not Detected (Not Detectd) 01/12/23 02:20 SARS-CoV-2 (PCR) Not Detected (Not Detectd) 01/12/23 02:20 Allergies Allergy/AdvReac Type Severity Reaction Status Date / Time trazodone AdvReac Rapid Verified 01/12/23 15:51 Heart Rate Patient Condition at Discharge: Stable Plan - Discharge Summary Discharge Rx Participant: Yes New Discharge Prescriptions: New Nicotine 7Mg/24Hr Patch [Habitrol] 1 patch TRANSDERM DAILY 15 Days #15 patch Docusate [Colace] 100 mg PO BID PRN 7 Days #14 cap PRN Reason: Constipation Gabapentin [Neurontin] 400 mg PO TID 30 Days #90 cap Naltrexone HCl [Revia] 50 mg PO DAILY 30 Days #30 tab Doxepin [SINEquan] 50 mg PO HS 30 Days #30 cap Continue amLODIPine [Norvasc] 10 mg PO DAILY hydroCHLOROthiazide [Hydrodiuril] 25 mg PO DAILY raNITIdine HCL [Ranitidine HCl] 150 mg PO BID lisinopriL [Prinivil] 10 mg PO DAILY Folic Acid 1 mg PO DAILY Discontinued Mirtazapine [Remeron] 30 mg PO HS Vivitrol 380mg Inj 380 mg IM Q28D QUEtiapine FUMARATE [SEROquel XR] 150 mg PO HS Discharge Medication List Folic Acid 1 mg PO DAILY 03/21/17 [History] amLODIPine [Norvasc] 10 mg PO DAILY 03/21/17 [History] hydroCHLOROthiazide [Hydrodiuril] 25 mg PO DAILY 03/21/17 [History] lisinopriL [Prinivil] 10 mg PO DAILY 03/21/17 [History] raNITIdine HCL [Ranitidine HCl] 150 mg PO BID 03/21/17 [History] Docusate [Colace] 100 mg PO BID PRN 7 Days #14 cap 01/17/23 [Rx] Doxepin [SINEquan] 50 mg PO HS 30 Days #30 cap 01/17/23 [Rx] Gabapentin [Neurontin] 400 mg PO TID 30 Days #90 cap 01/17/23 [Rx] Naltrexone HCl [Revia] 50 mg PO DAILY 30 Days #30 tab 01/17/23 [Rx] Nicotine 7Mg/24Hr Patch [Habitrol] 1 patch TRANSDERM DAILY 15 Days #15 patch 01/17/23 [Rx] Follow up Appointment(s)/Referral(s): [facility] [Outside] - 01/24/23 10:00 am (01/24/2023 10:00AM - 11:00AM DANIEL PIZANO 01/29/2023 8:30AM - 9:30AM PETTY PALACIOS ) [facility] - 1 Week Activity/Diet/Wound Care/Special Instructions: Avoid the use of street drugs and alcohol. Take all medications as prescribed. When you are in need of refills on your medications, please contact your medical provider and/or outpatient psychiatrist to have this done. Please go to scheduled outpatient appointments for aftercare treatment. If symptoms return or become worse, call the crisis line at and/or go to the nearest emergency room for evaluation. Discharge/Stand Alone Forms: AA Meetings [facility] Discharge Disposition: HOME SELF-CARE
== END 2023-01-17 12:51 | disposition home or self-care (01) | DRG 882 ==
LOC: EC 01:23 → 3MHU 05:41
PROVIDERS: ADMIT Psychiatry & Neurology Psychiatry; ATTEND Psychiatry & Neurology Psychiatry
DX: F43.23 Adjustment disorder with mixed anxiety and depressed mood (principal); R45.851 Suicidal ideations; F10.980 Alcohol use, unspecified with alcohol-induced anxiety disorder; I10 Essential (primary) hypertension; F12.10 Cannabis abuse, uncomplicated; F17.210 Nicotine dependence, cigarettes, uncomplicated; G47.00 Insomnia, unspecified; R45.1 Restlessness and agitation; R48.0 Dyslexia and alexia; F45.9 Somatoform disorder, unspecified; D75.1 Secondary polycythemia; E86.0 Dehydration; Z20.822 Contact with and (suspected) exposure to COVID-19; Z28.311 Partially vaccinated for COVID-19; Z79.899 Other long term (current) drug therapy; Z88.8 Allergy status to other drugs, medicaments and biological substances
CPT/HCPCS: 36415; 74177; 80053; 80061; 80076; 80306; 81003; 82075; 82150; 83036; 83605; 83690; 84443; 85025; 85610; 85730; 87636; 93005